=== PATIENT | male | born 1975 | race Caucasian/White ===

== ENCOUNTER 2020-10-27 18:44 | Inpatient (IN) ==
[2020-10-27] MEDS ORDERED: SODIUM CHLORIDE 0.9% 1,000 ML IV STA (20:07)
[2020-10-27 20:16] LABS: Basophils % 0.3 % (0.0-0.8); Eosinophils # 0.1 10*3/uL (0.0-0.87); Eosinophils % 0.6 % (0.00-10.9); Hematocrit 42.5 VOL% (42.0-52.0); Hemoglobin 13.8 GM/DL (14.0-18.0); Immature Granulocytes % 0.4 %; Immature Granulocytes Absolute 0.04 #; Lymphocytes # 2.5 10*3/uL (1.4-4.0); Lymphocytes % 22.5 % (21.2-54.2); Mean Corpuscular HGB Conc 32.5 GM/DL (32-36); Mean Corpuscular Volume 90.4 FL (87-102); Mean Platelet Volume 8.6 FL (9.6-12.0); Monocytes % 6.6 % (1.7-12.7); Neutrophils % 69.6 % (38.7-73.9); Platelet Count 309 T/CUMM (130-400); Red Cell Distribution Width 12.5 % (9.3-17.3); White Blood Count 10.9 T/CUMM (4-12)
[2020-10-27 20:35] LABS: Alanine Aminotransferase 21 U/L (16-61); Albumin 3.6 G/DL (3.4-5.0); Alkaline Phosphatase 105 U/L (45-117); Aspartate Amino Transferase 11 U/L (0-37); Bilirubin,Total < 0.39 MG/DL (0.2-1.0); Blood Urea Nitrogen 13 MG/DL (7-18); Calcium 8.9 MG/DL (8.5-10.1); Carbon Dioxide 25 MMOL/L (21-32); Estimated Glom Filtration Rate 107 ML/MIN; Glucose 111 MG/DL (74-106); Osmolality,Calculated 270.1 MOS/KG (273-304); Potassium 2.9 MMOL/L (3.5-5.1); Sodium 135 MMOL/L (136-145); Total Protein 7.8 G/DL (6.4-8.2)
[2020-10-27] MEDS ORDERED: POTASSIUM CHLORIDE 20 MEQ TABLET PO STA (20:37)
[2020-10-27] MEDS ORDERED: LIDOCAINE 2% TOP JELLY 20 ML VIAL INTRAURETH ONE (21:18)
[2020-10-27] MEDS ORDERED: GLUCAGON 1 MG VIAL IM PRN (21:35)
[2020-10-27] MEDS ORDERED: DEXTROSE 50% 25 GM/50 ML VIAL IV PRN (21:35)
[2020-10-27] MEDS ORDERED: MORPHINE 4 MG/1 ML VIAL IV PRN (21:35)
[2020-10-27] MEDS ORDERED: hydrALAZINE 20 MG/1 ML VIAL IV PRN (21:35)
[2020-10-27] MEDS ORDERED: NICOTINE 21 MG/24 HR PATCH TRANSDERM PRN (21:35)
[2020-10-27] MEDS ORDERED: HYDROmorphone 2 MG/1 ML VIAL IV PRN (21:37)
[2020-10-27] MEDS ORDERED: POTASSIUM CHLORIDE 20 MEQ TABLET PO ONE (21:46)
[2020-10-27] MEDS ORDERED: cefTRIAXone 1,000 MG in SYRINGE 1 EACH IV ONE (22:16)
[2020-10-27 22:49] LABS: Bilirubin,Urine Negative (Negative); Blood, Urine Large mg/dL (Negative); Glucose,Urine (UA) Negative (Negative); Ketones,Urine Negative (Negative); Nitrite,Urine Negative (Negative); Protein,Urine 30 MG/DL; RBC,Urine 5561 /HPF (0-4); Squamous Epithelial Cell,Urine Occasional /HPF (0-10); Urine Appearance Slightly Hazy (Clear); Urine Color Red (Yellow); Urine Specific Gravity 1.008 (1.001-1.035); Urine Urobilinogen < 2.0 EU/DL (0.2-1.0); WBC,Urine 17 /HPF (0-6)
[2020-10-27] MEDS: ONDANSETRON 4 MG/2 ML VIAL IV PRN (23:56)
[2020-10-28] MEDS: POTASSIUM CHLORIDE INJ 40 MEQ in DEXTROSE 5% 1,000 ML IV SCH ×3 (00:19→22:29)
[2020-10-28] MEDS: cefTRIAXone 1,000 MG in SYRINGE 1 EACH IV SCH (02:40)
[2020-10-28] MEDS: ONDANSETRON 4 MG/2 ML VIAL IV PRN ×3 (04:22→19:20)
[2020-10-28] MEDS ORDERED: cefTRIAXone 1,000 MG in SYRINGE 1 EACH IV ONE (06:00)
[2020-10-28 06:22] LABS: Basophils % 0.2 % (0.0-0.8); Eosinophils % 0.2 % (0.00-10.9); Hematocrit 37.9 VOL% (42.0-52.0); Hemoglobin 12.3 GM/DL (14.0-18.0); Immature Granulocytes % 0.2 %; Immature Granulocytes Absolute 0.02 #; Lymphocytes # 1.5 10*3/uL (1.4-4.0); Lymphocytes % 17.5 % (21.2-54.2); Mean Corpuscular HGB Conc 32.5 GM/DL (32-36); Mean Corpuscular Volume 88.1 FL (87-102); Mean Platelet Volume 9.1 FL (9.6-12.0); Monocytes % 6.5 % (1.7-12.7); Neutrophils % 75.4 % (38.7-73.9); Platelet Count 281 T/CUMM (130-400); Red Cell Distribution Width 12.9 % (9.3-17.3); White Blood Count 8.4 T/CUMM (4-12)
[2020-10-28] MEDS ORDERED: LIDOCAINE 2% 5 ML VIAL ONE (06:34)
[2020-10-28] MEDS ORDERED: propofoL 200 MG/20 ML VIAL IV ONE (06:34)
[2020-10-28] MEDS ORDERED: SEVOFLURANE 1 UNIT/15 MINUTE INH ONE ×12 (06:34→11:19)
[2020-10-28] MEDS ORDERED: ROCURONIUM 50 MG/5 ML VIAL IV ONE (06:34)
[2020-10-28] MEDS ORDERED: fentaNYL 100 MCG/2 ML VIAL ONE ×2 (06:35→09:00)
[2020-10-28] MEDS ORDERED: MIDAZOLAM 2 MG/2 ML VIAL ONE (06:35)
[2020-10-28] MEDS ORDERED: ONDANSETRON 4 MG/2 ML VIAL ONE ×4 (06:38→11:19)
[2020-10-28 06:49] LABS: Calcium 8.7 MG/DL (8.5-10.1); Osmolality,Calculated 275.8 MOS/KG (273-304); Potassium 3.6 MMOL/L (3.5-5.1)
[2020-10-28] MEDS ORDERED: LIDOCAINE 2% TOP JELLY 20 ML VIAL INTRAURETH ONE (07:04)
[2020-10-28] MEDS ORDERED: ROPIVACAINE 0.5% 30 ML VIAL ONE ×2 (07:10→11:36)
[2020-10-28] MEDS ORDERED: DEXAMETHASONE 4 MG/1 ML VIAL ONE ×3 (07:10→08:21)
[2020-10-28] MEDS ORDERED: LIDOCAINE 1% 5 ML VIAL ONE (07:10)
[2020-10-28] MEDS ORDERED: FAMOTIDINE 20 MG/2 ML VIAL IV ONE (07:31)
[2020-10-28] MEDS ORDERED: PROMETHAZINE 25 MG/1 ML VIAL ONE (07:34)
[2020-10-28] MEDS ORDERED: CITRIC ACID/SODIUM CITRATE 30 ML UDCUP ONE (07:42)
[2020-10-28] MEDS ORDERED: SUCCINYLCHOLINE 200 MG/10 ML VIAL ONE (08:07)
[2020-10-28] MEDS ORDERED: SODIUM CHLORIDE 0.9% 1,000 ML IV ONE (08:13)
[2020-10-28] MEDS ORDERED: LACTATED RINGERS 1,000 ML IV ONE (10:03)
[2020-10-28] MEDS ORDERED: HYDROmorphone 2 MG/1 ML VIAL ONE (11:42)
[2020-10-28] MEDS: ACETAMINOPHEN 325 MG TABLET PO SCH ×2 (12:30→19:15)
[2020-10-28] MEDS: SODIUM CHLORIDE 0.9% 1,000 ML IV SCH ×2 (13:45→19:47)
[2020-10-28] MEDS: HYDROmorphone 2 MG/1 ML VIAL IV PRN ×2 (15:44→19:16)
[2020-10-28] MEDS: PANTOPRAZOLE 40 MG VIAL IV SCH (15:50)
[2020-10-28] MEDS: DOCUSATE SODIUM 100 MG CAPSULE PO SCH (21:48)
[2020-10-28] MEDS: ALVIMOPAN 12 MG CAPSULE PO SCH (21:48)
[2020-10-29] MEDS: ACETAMINOPHEN 325 MG TABLET PO SCH ×4 (00:28→18:06)
[2020-10-29] MEDS: cefTRIAXone 1,000 MG in SYRINGE 1 EACH IV SCH (01:11)
[2020-10-29] MEDS: oxyCODONE/ACETAMINOPHEN 5-325 MG TABLET PO PRN ×2 (03:04→11:15)
[2020-10-29] MEDS: SODIUM CHLORIDE 0.9% 1,000 ML IV SCH (03:31)
[2020-10-29 05:11] LABS: Basophils % 0.2 % (0.0-0.8); Hematocrit 35.6 VOL% (42.0-52.0); Hemoglobin 11.7 GM/DL (14.0-18.0); Immature Granulocytes % 0.3 %; Immature Granulocytes Absolute 0.04 #; Lymphocytes # 1.8 10*3/uL (1.4-4.0); Lymphocytes % 15.4 % (21.2-54.2); Mean Corpuscular HGB Conc 32.9 GM/DL (32-36); Mean Corpuscular Volume 88.1 FL (87-102); Mean Platelet Volume 8.9 FL (9.6-12.0); Monocytes % 6.9 % (1.7-12.7); Neutrophils % 77.2 % (38.7-73.9); Platelet Count 268 T/CUMM (130-400); Red Blood Count 4.04 MC/CUMM (3.8-5.5); Red Cell Distribution Width 12.7 % (9.3-17.3); White Blood Count 11.9 T/CUMM (4-12)
[2020-10-29 05:22] LABS: Calcium 8.3 MG/DL (8.5-10.1); Osmolality,Calculated 277.5 MOS/KG (273-304); Potassium 3.5 MMOL/L (3.5-5.1)
[2020-10-29] MEDS ORDERED: MAGNESIUM SULF RIDER 2 GM in PREMIX 1 EACH IV PRN (07:35)
[2020-10-29] MEDS ORDERED: MAGNESIUM SULF RIDER 4 GM in PREMIX 1 EACH IV PRN (07:35)
[2020-10-29] MEDS: ALVIMOPAN 12 MG CAPSULE PO SCH ×2 (08:36→20:18)
[2020-10-29] MEDS: HYDROmorphone 2 MG/1 ML VIAL IV PRN ×3 (08:36→20:22)
[2020-10-29] MEDS: DOCUSATE SODIUM 100 MG CAPSULE PO SCH ×2 (08:36→20:19)
[2020-10-29] MEDS: PANTOPRAZOLE 40 MG VIAL IV SCH (08:39)
[2020-10-29] MEDS ORDERED: POTASSIUM CHLORIDE 20 MEQ TABLET PO ONE (09:00)
[2020-10-29] MEDS ORDERED: SIMVASTATIN 10 MG TABLET PO SCH (21:00)
[2020-10-30] MEDS: oxyCODONE/ACETAMINOPHEN 5-325 MG TABLET PO PRN (01:00)
[2020-10-30] MEDS: ONDANSETRON 4 MG/2 ML VIAL IV PRN (01:21)
[2020-10-30] MEDS: ACETAMINOPHEN 325 MG TABLET PO SCH ×3 (01:27→12:45)
[2020-10-30] MEDS: cefTRIAXone 1,000 MG in SYRINGE 1 EACH IV SCH (02:48)
[2020-10-30 05:27] LABS: Basophils % 0.2 % (0.0-0.8); Eosinophils % 0.4 % (0.00-10.9); Hematocrit 40.9 VOL% (42.0-52.0); Immature Granulocytes % 0.3 %; Immature Granulocytes Absolute 0.03 #; Lymphocytes # 1.4 10*3/uL (1.4-4.0); Lymphocytes % 14.2 % (21.2-54.2); Mean Corpuscular HGB Conc 31.8 GM/DL (32-36); Mean Corpuscular Volume 90.1 FL (87-102); Mean Platelet Volume 8.6 FL (9.6-12.0); Monocytes % 7.2 % (1.7-12.7); Neutrophils % 77.7 % (38.7-73.9); Platelet Count 284 T/CUMM (130-400); Red Blood Count 4.54 MC/CUMM (3.8-5.5); Red Cell Distribution Width 12.9 % (9.3-17.3); White Blood Count 9.8 T/CUMM (4-12)
[2020-10-30 05:40] LABS: Osmolality,Calculated 278.5 MOS/KG (273-304); Potassium 3.8 MMOL/L (3.5-5.1)
[2020-10-30] MEDS ORDERED: LACTATED RINGERS 1,000 ML IV SCH (08:00)
[2020-10-30] MEDS ORDERED: PANTOPRAZOLE 40 MG TABLET PO SCH (09:00)
[2020-10-30] MEDS ORDERED: LOSARTAN 50 MG TABLET PO SCH (09:00)
[2020-10-30] MEDS: ALVIMOPAN 12 MG CAPSULE PO SCH (09:17)
[2020-10-30] MEDS: DOCUSATE SODIUM 100 MG CAPSULE PO SCH (09:17)
[2020-10-30 11:51] VITALS: BP 146/98
[2020-11-01 10:00] LABS: Cancer Antigen 19-9 < 1.20 U/ML (0-35)
== END 2020-10-30 15:30 | disposition home or self-care (01) | DRG 658 ==
LOC: N.ED 18:44 → SUATTDRO 21:35 → N.EDINP 21:35 → N.3E 23:00
PROVIDERS: ADMIT Internal Medicine; ATTEND Internal Medicine

== ENCOUNTER 2021-05-31 18:59 | Inpatient (IN) ==
[2021-05-31] MEDS ORDERED: SODIUM CHLORIDE 0.9% 1,000 ML IV STA (19:27)
[2021-05-31] MEDS ORDERED: PIPERACILLIN/TAZOBACTAM 3,375 MG in SODIUM CHLORIDE 0.9% 100 ML IV STA (19:27)
[2021-05-31] MEDS ORDERED: ONDANSETRON 4 MG/2 ML VIAL IV STA (20:16)
[2021-05-31] MEDS ORDERED: HYDROmorphone 2 MG/1 ML VIAL IV ONE (20:16)
[2021-05-31 20:25] LABS: Basophils # 0.1 10*3/uL (0.0-0.2); Basophils % 0.4 % (0.0-0.8); Eosinophils # 6.7 10*3/uL (0.0-0.87); Eosinophils % 39.1 % (0.00-10.9); Hematocrit 39.6 VOL% (42.0-52.0); Hemoglobin 13.2 GM/DL (14.0-18.0); Immature Granulocytes % 0.3 %; Immature Granulocytes Absolute 0.05 #; Lymphocytes # 2.1 10*3/uL (1.4-4.0); Lymphocytes % 12.1 % (21.2-54.2); Mean Corpuscular HGB Conc 33.3 GM/DL (32-36); Mean Corpuscular Volume 96.4 FL (87-102); Mean Platelet Volume 9.8 FL (9.6-12.0); Neutrophils % 35.1 % (38.7-73.9); Platelet Count 831 T/CUMM (130-400); Red Blood Count 4.11 MC/CUMM (3.8-5.5); Red Cell Distribution Width 12.4 % (9.3-17.3); White Blood Count 17.1 T/CUMM (4-12)
[2021-05-31 20:34] LABS: Bilirubin,Urine Negative (Negative); Blood, Urine Negative (Negative); Glucose,Urine (UA) >=500 mg/dL (Negative); Ketones,Urine Negative (Negative); Mucus,Urine Occasional /LPF (Occasional); Nitrite,Urine Negative (Negative); Protein,Urine 30 MG/DL; RBC,Urine 2 /HPF (0-4); Squamous Epithelial Cell,Urine Occasional /HPF (0-10); Urine Appearance Slightly Hazy (Clear); Urine Color Yellow (Yellow)
[2021-05-31 20:46] LABS: Alanine Aminotransferase 63 U/L (16-61); Albumin 3.4 G/DL (3.4-5.0); Alkaline Phosphatase 96 U/L (45-117); Amylase 50 U/L (25-115); Aspartate Amino Transferase 47 U/L (0-37); Blood Urea Nitrogen 16 MG/DL (7-18); Calcium 9.5 MG/DL (8.5-10.1); Carbon Dioxide 26 MMOL/L (21-32); Estimated Glom Filtration Rate 65 ML/MIN; Glucose 219 MG/DL (74-106); Osmolality,Calculated 271.5 MOS/KG (273-304); Potassium 4.3 MMOL/L (3.5-5.1); Sodium 132 MMOL/L (136-145); Total Protein 7.1 G/DL (6.4-8.2)
[2021-05-31 21:01] LABS: Band Neutrophils 9 % (0-10); Eosinophils 15 % (0-10); Lymphocytes 15 % (20-55); Nucleated Red Blood Cells 1 (0-5); Platelet Estimate Increased; Segmented Neutrophils 52 % (50-85); Total Cells Counted 100
[2021-05-31] MEDS ORDERED: DEXTROSE 50% 25 GM/50 ML VIAL IV PRN ×2 (21:28)
[2021-05-31] MEDS ORDERED: GLUCAGON 1 MG VIAL IM PRN (21:28)
[2021-05-31] MEDS ORDERED: ALBUTEROL/IPRATROPIUM 3 ML NEB RESP TX PRN (21:28)
[2021-05-31] MEDS ORDERED: ACETAMINOPHEN 325 MG TABLET PO PRN (21:28)
[2021-05-31] MEDS ORDERED: traMADol 50 MG TABLET PO SCH (22:00)
[2021-05-31] MEDS ORDERED: ZALEPLON 5 MG CAPSULE PO PRN (22:37)
[2021-05-31] MEDS: LEVOFLOXACIN INJ 750 MG/150 ML PREMIX IV SCH (23:09)
[2021-06-01] MEDS: ONDANSETRON 4 MG/2 ML VIAL IV PRN ×3 (00:30→16:19)
[2021-06-01] MEDS: HYDROmorphone 2 MG/1 ML VIAL IV PRN ×6 (00:32→22:40)
[2021-06-01 04:27] LABS: Basophils % 0.2 % (0.0-0.8); Hematocrit 35.8 VOL% (42.0-52.0); Hemoglobin 11.4 GM/DL (14.0-18.0); Immature Granulocytes % 0.7 %; Immature Granulocytes Absolute 0.16 #; Lymphocytes # 2.1 10*3/uL (1.4-4.0); Lymphocytes % 9.9 % (21.2-54.2); Mean Corpuscular HGB Conc 31.8 GM/DL (32-36); Mean Corpuscular Volume 99.7 FL (87-102); Mean Platelet Volume 10.1 FL (9.6-12.0); Monocytes % 12.7 % (1.7-12.7); Neutrophils % 76.5 % (38.7-73.9); Platelet Count 741 T/CUMM (130-400); Red Blood Count 3.59 MC/CUMM (3.8-5.5); Red Cell Distribution Width 12.4 % (9.3-17.3); White Blood Count 21.5 T/CUMM (4-12)
[2021-06-01] MEDS: PIPERACILLIN/TAZOBACTAM 3,375 MG in SODIUM CHLORIDE 0.9% 100 ML IV SCH ×3 (04:40→20:38)
[2021-06-01 04:46] LABS: Albumin 2.7 G/DL (3.4-5.0); Bilirubin,Total 0.4 MG/DL (0.20-1.00); Osmolality,Calculated 270.5 MOS/KG (273-304); Potassium 4.4 MMOL/L (3.5-5.1); Total Protein 6.7 G/DL (6.4-8.2)
[2021-06-01 04:49] LABS: Hypochromasia Slight; Lymphocytes 7 % (20-55); Microcytosis Slight; Platelet Estimate Increased; Segmented Neutrophils 82 % (50-85); Total Cells Counted 100
[2021-06-01] MEDS: LOSARTAN 50 MG TABLET PO SCH (09:13)
[2021-06-01] MEDS: INSULIN REGULAR 100 UNIT/ML SUBCUT SCH ×4 (09:13→21:14)
[2021-06-01] MEDS: PANTOPRAZOLE 40 MG TABLET PO SCH (09:13)
[2021-06-01] MEDS: IRON (CARBONYL)/VIT C/B12/FA TABLET PO SCH (09:13)
[2021-06-01] MEDS: ENOXAPARIN 40 MG/0.4 ML SYRINGE SUBCUT SCH (09:14)
[2021-06-01] MEDS ORDERED: SIMVASTATIN 10 MG TABLET PO SCH (21:00)
[2021-06-01] MEDS ORDERED: HYDROmorphone 2 MG/1 ML VIAL IV PRN (22:51)
[2021-06-02] MEDS: LEVOFLOXACIN INJ 750 MG/150 ML PREMIX IV SCH (00:10)
[2021-06-02] MEDS: PIPERACILLIN/TAZOBACTAM 3,375 MG in SODIUM CHLORIDE 0.9% 100 ML IV SCH ×2 (03:14→12:46)
[2021-06-02 04:25] LABS: Hematocrit 36.9 VOL% (42.0-52.0); Hemoglobin 12.2 GM/DL (14.0-18.0); Mean Corpuscular HGB Conc 33.1 GM/DL (32-36); Mean Corpuscular Volume 98.4 FL (87-102); Mean Platelet Volume 9.7 FL (9.6-12.0); Platelet Count 774 T/CUMM (130-400); Red Blood Count 3.75 MC/CUMM (3.8-5.5); Red Cell Distribution Width 12.5 % (9.3-17.3); White Blood Count 16.8 T/CUMM (4-12)
[2021-06-02 04:56] LABS: Albumin 2.9 G/DL (3.4-5.0); Bilirubin,Total 1.1 MG/DL (0.20-1.00); Calcium 9.4 MG/DL (8.5-10.1); Osmolality,Calculated 264.7 MOS/KG (273-304); Potassium 4.1 MMOL/L (3.5-5.1); Total Protein 7.2 G/DL (6.4-8.2)
[2021-06-02 05:08] LABS: Hypochromasia Slight; Lymphocytes 13 % (20-55); Microcytosis Slight; Platelet Estimate Increased; Segmented Neutrophils 72 % (50-85); Total Cells Counted 100
[2021-06-02] MEDS: IRON (CARBONYL)/VIT C/B12/FA TABLET PO SCH (08:07)
[2021-06-02] MEDS: ENOXAPARIN 40 MG/0.4 ML SYRINGE SUBCUT SCH (08:07)
[2021-06-02] MEDS: INSULIN REGULAR 100 UNIT/ML SUBCUT SCH ×3 (08:07→16:24)
[2021-06-02] MEDS: LOSARTAN 50 MG TABLET PO SCH (08:08)
[2021-06-02] MEDS: PANTOPRAZOLE 40 MG TABLET PO SCH (08:08)
[2021-06-02] MEDS: ONDANSETRON 4 MG/2 ML VIAL IV PRN ×2 (09:34→17:56)
[2021-06-02] MEDS ORDERED: POLYETHYLENE GLYCOL POWDER 17 GM PACK PO SCH (12:16)
[2021-06-02] MEDS ORDERED: PROMETHAZINE 25 MG/1 ML VIAL IM PRN (12:17)
[2021-06-02 17:56] VITALS: BP 118/74
== END 2021-06-02 18:49 | disposition hospice, home (50) | DRG 195 ==
LOC: N.ED 18:59 → N.EDINP 21:28 → SUATTDRO 21:28 → N.TELES 06-01 04:10
PROVIDERS: ADMIT Family Medicine; ATTEND Family Medicine